=== PATIENT | male | born 1970 | race Hispanic/Latino ===

== ENCOUNTER 2019-12-02 19:17 | Inpatient (IN) | payer SELFPAY ==
[~2019-12-02] VITALS: Ht 180.3 cm; Wt 104.8 kg
[2019-12-02 19:57] LABS: EOSINOPHILS % (AUTO) 6.3 % (0.0-8.0); HEMATOCRIT 53.5 % (42-54); LYMPHOCYTES % (AUTO) 29.9 % (21.0-51.0); MEAN CORPUSCULAR HEMOGLOBIN 30.2 pg (27.0-33.0); MEAN CORPUSCULAR HGB CONC 33.8 g/dL (32.0-36.0); MEAN CORPUSCULAR VOLUME 89.3 fL (79-99); MONOCYTES % (AUTO) 10.9 % (3.0-13.0); NEUTROPHILS % (AUTO) 51.6 % (40.0-77.0); PLATELET COUNT (AUTO) 218 K/uL (130-400); RED BLOOD CELL COUNT(AUTO) 5.99 MIL/uL (4.50-6.20); RED CELL DISTRIBUTION WIDTH 11.7 % (11.0-15.5); WHITE BLOOD COUNT (AUTO) 5.9 K/uL (4.8-10.8)
[2019-12-02 20:11] LABS: INR 0.94 (0.85-1.15); PARTIAL THROMBOPLASTIN TIME 25.4 SEC (26.3-35.5); PROTHROMBIN TIME 10.2 SEC (9.6-11.6)
[2019-12-02 20:12] LABS: CREATININE 1.1 mg/dL (0.5-1.5); POTASSIUM 4.3 mmol/L (3.5-5.1)
[2019-12-02 20:16] LABS: ALBUMIN 3.8 g/dL (3.5-5.0); BILIRUBIN,TOTAL 0.5 mg/dL (0.2-1.0); TOTAL PROTEIN, SERUM 8.4 g/dL (6.0-8.3)
[2019-12-02 21:15] LABS: APPEARANCE,URINE Cloudy (CLEAR); BILIRUBIN,URINE Small (NEGATIVE); COLOR,URINE Dark Yellow (YELLOW); GLUCOSE, URINE (UA) Negative (NEGATIVE); KETONES,URINE Negative (NEGATIVE); LEUKOCYTE ESTERASE ,URINE Negative (NEGATIVE); NITRATE,URINE Negative (NEGATIVE); OCCULT BLOOD,URINE Negative (NEGATIVE); PROTEIN,URINE Negative (NEGATIVE)
[2019-12-02 21:21] LABS: AMPHET/METH SCREEN,URINE NEGATIVE (NEGATIVE); BARBITURATE SCREEN, URINE NEGATIVE (NEGATIVE); BENZODIAZEPINES SCREEN,URINE NEGATIVE (NEGATIVE); CANNABINOID SCREEN,URINE POSITIVE (NEGATIVE); COCAINE SCREEN,URINE NEGATIVE (NEGATIVE); OPIATE SCREEN,URINE NEGATIVE (NEGATIVE); PHENCYCLIDINE SCREEN,URINE NEGATIVE (NEGATIVE)
[2019-12-02 21:59] LABS: BACTERIA,URINE Few /HPF (None Seen); RBC,URINE 0-1 /HPF (0-1); SQUAMOUS EPITHELIAL CELL,UR Moderate /HPF (0-2)
[2019-12-02 22:00] LABS: MUCUS,URINE Few LPF (None Seen)
[2019-12-02] MEDS ORDERED: FAMOTIDINE/PF 20 MG/2 ML VIAL IV ONE (23:28)
[2019-12-02] MEDS ORDERED: LISI-613 PO (23:50)
[2019-12-02] MEDS ORDERED: HYDR12.54 PO (23:50)
[2019-12-03] VITALS (7 sets, daily range): BP systolic 124–153; BP diastolic 75–109
--- NOTE | 2019-12-03 02:04 | NUR ---
received report from er nurse, assumed care, head to toe assessment done, neurocheck done, vs checked, place tele running normal sinus rhythm, reconciled medication , stroke scale done nih 2, safety maintained, bed in lowest position, bedrails upx2, callbell in reached, pt on npo , for mri today.
[2019-12-03 04:43] LABS: HEMATOCRIT 51.2 % (42-54); MEAN CORPUSCULAR HEMOGLOBIN 30.3 pg (27.0-33.0); MEAN CORPUSCULAR HGB CONC 33.6 g/dL (32.0-36.0); MEAN CORPUSCULAR VOLUME 90.1 fL (79-99); RED BLOOD CELL COUNT(AUTO) 5.68 MIL/uL (4.50-6.20); RED CELL DISTRIBUTION WIDTH 11.8 % (11.0-15.5); WHITE BLOOD COUNT (AUTO) 6.1 K/uL (4.8-10.8)
[2019-12-03 05:01] LABS: CREATININE 1.3 mg/dL (0.5-1.5)
[2019-12-03 05:09] LABS: HEMOGLOBIN A1C 5.6 % (4.0-6.0)
[2019-12-03] MEDS ORDERED: ASPIRIN 81 MG EC TAB PO SCH (09:00)
[2019-12-03] MEDS ORDERED: FAMOTIDINE/PF 20 MG/2 ML VIAL IV SCH (09:00)
--- NOTE | 2019-12-03 10:00 | NUR ---
DYSPHAGIA EVAL COMPLETED. -S/S OF ASPIRATION. RECOMMEND REGULAR TEXTURE, THIN LIQUIDS; PILLS WHOLE WITH LIQUIDS. Addendum: 12/03/19 at 1240 by DIEUDONNE SANFORD, [facility] Amended: Links added.
--- NOTE | 2019-12-03 10:30 | NUR ---
COGNITIVE-LINGUISTIC EVALUATION COMPLETED. Pt PRESENTS WITH MODERATE-SEVERE DYSARTHRIA. EVALUATION: Pt AAOX3. Pt REQUESTS WANTS AND NEEDS INDEPENDENTLY. Pt INTELLIGIBLE AT 50% ACCURACY DURING RUNNING SPEECH TO THE UNFAMILIAR LISTENER. Pt PRESENTS WITH MODERATE-SEVERE DYSARTHRIA. Pt COMMUNICATING AT CONVERSATIONAL LEVEL (NEGATIVELY IMPACTED BY DYSARTHRIA). Pt COMPLETED COGNITIVE-LINGUISTIC EVALUATION TARGETING: ORIENTATION, ATTENTION/CONCENTRATION, MEMORY (IMMEDIATE, SHORT-TERM AND LONG-TERM), PROBLEM SOLVING, LOGIC/REASONING/INFERENCE, THOUGHT ORGANIZATION, FUNCTIONAL MATH AND TELLING TIME. Pt ABLE TO COMPLETE TASKS WITH CORRECT ANSWERS. SKILLED SPEECH THERAPY IS RECOMMENDED TARGETING MOTOR SPEECH. RECOMMENDATIONS: 1. SKILLED SPEECH THERAPY 1-5XWK TOLERATED BY Pt FOR 4WKS. LTG#1: Pt WILL BE INTELLIGIBLE AT 80% ACCURACY IN ALL SETTINGS TO PARTICIPATE IN ADLs INDEPENDENTLY. STG1: Pt WILL COMPLETE ORAL MOTOR EXERCISES WITH 80% ACCURACY. STG2: Pt WILL COMPLETED AMRs/SMRs WITH 80% ACCURACY. STG3: Pt WILL COMPLETE SPEECH CLARITY TECHNIQUES AT PHRASE LEVEL WITH 80% ACCURACY. STG4: Pt WILL COMPLETE SPEECH CLARITY TECHNIQUES AT SENTENCE LEVEL WITH 80% ACCURACY. STG5: SKILLED EDUCATION Pt/STAFF. MOTOR SPEECH G-CODES: [id number] Addendum: 12/03/19 at 1314 by DIEUDONNE SANFORD [facility] Amended: Links added.
[2019-12-03] MEDS ORDERED: GADODIAMIDE 10 MMOL/20 ML VIAL IV ONE (11:23)
[2019-12-03] MEDS ORDERED: LIDOCAINE HCL-MPF 1% 2ML VIAL IV PRN (15:15)
[2019-12-03] MEDS ORDERED: ZOLPIDEM TARTRATE 5 MG TAB PO PRN (15:15)
[2019-12-03] MEDS ORDERED: GUAIFENESIN-DM 200/20 MG 10 ML PO PRN (15:15)
[2019-12-03] MEDS ORDERED: DiphenhydrAMINE HCL 50 MG/ML VIAL IV PRN (15:15)
[2019-12-03] MEDS ORDERED: ONDANSETRON HCL 4 MG/2 ML VIAL IV PRN (15:15)
[2019-12-03] MEDS ORDERED: MAG HYDROX/AL HYDROX/SIMETH ES 30 ML SUSP UDCUP PO PRN (15:15)
[2019-12-03] MEDS ORDERED: HYDRALAZINE HCL 20 MG/ML VIAL IV PRN (15:15)
[2019-12-03] MEDS ORDERED: ACETAMINOPHEN 325 MG TAB PO PRN ×2 (15:15)
[2019-12-03] MEDS ORDERED: POTASSIUM CHLORIDE 10% ELIXIR 20 MEQ/15 ML UDCUP PO PRN (15:15)
[2019-12-03] MEDS ORDERED: LACTULOSE 20 GM/30 ML UDCUP PO PRN (15:15)
[2019-12-03] MEDS ORDERED: MORPHINE SULFATE 4 MG/1ML SYG IV PRN (15:15)
[2019-12-03] MEDS ORDERED: DIPHENHYDRAMINE HCL 25 MG CAPSULE PO PRN (15:15)
[2019-12-03] MEDS ORDERED: POTASSIUM CHLORIDE 20MEQ/100ML 100 ML IV PRN (15:15)
[2019-12-03] MEDS ORDERED: MAGNESIUM 2GM PREMIX 50ML 50 ML IV PRN (15:15)
[2019-12-03] MEDS ORDERED: NITROGLYCERIN 0.4 MG SL TAB SL PRN (15:15)
[2019-12-03] MEDS ORDERED: POTASSIUM CHLORIDE 20 MEQ ERTAB PO PRN (15:15)
--- NOTE | 2019-12-03 17:34 | NUR ---
SPOKE TO SISTER AT BEDSIDE. PATIENT LIVES WITH HIS OLDER PARENTS- NO DME, INDP, DRIVES, HELPS HIS FAMILY- HX OF SIMILAR EPISODE A FEW MONTHS AGO WITHOUT DEFINITE DIAGNOSIS. SPOKE TO SISTER, STATES PATIENT VERY UPSET, CANNOT SPEAK PROPERLY, ADVISED SISTER THAT FAMILY AND PATIENT WILL GET A DEFINITE DX IN THE MORNING WITH A PLAN OF CARE. STROKE CONFIRMED BY IMAGING, POSS EMBOLIC WILL FOLLOW UP. ADVISED SISTER WHIPPED TOPPING FINISHER CAN HELP WITH COUPONS, MEDS, ETC ON DISCHARGE. CM TO FOLLLUPILLO Addendum: 12/03/19 at 1745 by YEISON NAVA RN CM Amended: Links added.
[2019-12-03] MEDS: FAMOTIDINE 20MG TAB 20 MG TAB PO SCH (20:35)
--- NOTE | 2019-12-04 01:35 | NUR ---
received report from am nurse, [facility] care, shift assessment done, pt passed swallow test, new diet ordered, 24 cc done, timed medication given see emar, safety maintained, pt had a bm, will continue to monitor.
[2019-12-04 04:18] VITALS: BP 159/92
[2019-12-04 04:35] LABS: EOSINOPHILS % (AUTO) 5.9 % (0.0-8.0); HEMATOCRIT 51.2 % (42-54); LYMPHOCYTES % (AUTO) 23.6 % (21.0-51.0); MEAN CORPUSCULAR HGB CONC 33.2 g/dL (32.0-36.0); MEAN CORPUSCULAR VOLUME 90.3 fL (79-99); NEUTROPHILS % (AUTO) 58.2 % (40.0-77.0); PLATELET COUNT (AUTO) 194 K/uL (130-400); RED BLOOD CELL COUNT(AUTO) 5.67 MIL/uL (4.50-6.20); RED CELL DISTRIBUTION WIDTH 11.7 % (11.0-15.5); WHITE BLOOD COUNT (AUTO) 6.1 K/uL (4.8-10.8)
[2019-12-04 05:05] LABS: ALBUMIN 3.6 g/dL (3.5-5.0); BILIRUBIN,TOTAL 0.6 mg/dL (0.2-1.0); CREATININE 1.4 mg/dL (0.5-1.5); POTASSIUM 4.7 mmol/L (3.5-5.1)
--- NOTE | 2019-12-04 05:54 | NUR ---
pt , fernando hartman [phone].
[2019-12-04 07:00] VITALS: BP 148/94
[2019-12-04 11:00] VITALS: BP 144/89
--- NOTE | 2019-12-04 14:13 | NUR ---
SPEECH THERAPY COMPLETED. S: Pt SEATED IN POLLO CHAIR AT THE TIME OF THE SESSION. Pt COOPERATIVE WITH ALL TASKS. O: Pt CURRENTLY TARGETING SPEECH GOALS TO IMPROVE DYSARTHRIA. RESULTS ARE FOLLOWS: STG1: Pt WILL COMPLETE ORAL MOTOR EXERCISES WITH 80% ACCURACY: 70% ACCURACY GIVEN MAX CUES STG2: Pt WILL COMPLETED AMRs/SMRs WITH 80% ACCURACY: 70% ACCURACY GIVEN MAX CUES STG3: Pt WILL COMPLETE SPEECH CLARITY TECHNIQUES AT PHRASE LEVEL WITH 80% ACCURACY: 50% ACCURACY GIVEN MAX CUES STG4: Pt WILL COMPLETE SPEECH CLARITY TECHNIQUES AT SENTENCE LEVEL WITH 80% ACCURACY: NOT TARGETED STG5: SKILLED EDUCATION Pt/STAFF: COMPLETED A: Pt WITH IMPROVED USE OF OVER-ARTICULATION TECHNIQUES WITH MAXIMUM CUES. P: RECOMMEND CONTINUED SKILLED SPEECH THERAPY 3-5XWK FOR 4 WEEKS. INSURANCE FOLLOW UP REP PROVIDED Pt WITH HANDOUT OF HOME PROGRAM AT THIS TIME. HE VERBALIZED UNDERSTANDING AND COMPLIANCE. ALL QUESTIONS ANSWERED AT THIS TIME. INSURANCE FOLLOW UP REP COORDINATED WITH NURSE BLANK. Addendum: 12/04/19 at 1418 by JOSE DE JESUS BLACKWELL Amended: Links added.
[2019-12-04 15:00] VITALS: BP 133/89
[2019-12-04 20:54] VITALS: BP 136/76
[2019-12-04] MEDS: FAMOTIDINE 20MG TAB 20 MG TAB PO SCH (20:58)
[2019-12-05 00:50] VITALS: BP 151/86
[2019-12-05 06:10] LABS: EOSINOPHILS % (AUTO) 7.5 % (0.0-8.0); HEMATOCRIT 50.8 % (42-54); LYMPHOCYTES % (AUTO) 28.9 % (21.0-51.0); MEAN CORPUSCULAR HEMOGLOBIN 29.6 pg (27.0-33.0); MEAN CORPUSCULAR HGB CONC 32.9 g/dL (32.0-36.0); MEAN CORPUSCULAR VOLUME 90.1 fL (79-99); MONOCYTES % (AUTO) 11.4 % (3.0-13.0); PLATELET COUNT (AUTO) 195 K/uL (130-400); RED BLOOD CELL COUNT(AUTO) 5.64 MIL/uL (4.50-6.20); RED CELL DISTRIBUTION WIDTH 11.6 % (11.0-15.5); WHITE BLOOD COUNT (AUTO) 5.1 K/uL (4.8-10.8)
[2019-12-05 06:34] VITALS: BP 139/91
[2019-12-05 06:46] LABS: ALBUMIN 3.4 g/dL (3.5-5.0); BILIRUBIN,TOTAL 0.8 mg/dL (0.2-1.0); CREATININE 1.1 mg/dL (0.5-1.5); POTASSIUM 4.1 mmol/L (3.5-5.1); TOTAL PROTEIN, SERUM 7.5 g/dL (6.0-8.3)
[2019-12-05 08:00] VITALS: BP 147/93
[2019-12-05 11:34] VITALS: BP 137/90
--- NOTE | 2019-12-05 12:08 | NUR ---
EXPECTING DC TO HOME WHEN CLEARED BY CARDIOLOGY. GWENDOLYN TODAY. HIV CTS SPECIALIST TO DISCUSS WITH FAMILY(SISTER DELORES( EXCERSIZES FOR IMPROVED SPEECH. CM T FOLLOW IF NEEDS ANY MED COUPONS. Addendum: 12/05/19 at 1250 by YEISON NAVA RN CM Amended: Links added.
[2019-12-05] MEDS ORDERED: FENTANYL CITRATE PF 50 MCG/1 ML 2ML VIAL ONE (13:46)
[2019-12-05] MEDS ORDERED: MIDAZOLAM HCL 1 MG/ML 2ML VIAL ONE (13:47)
--- NOTE | 2019-12-05 14:06 | NUR ---
SPEECH THERAPY COMPLETED. S: Pt SEATED IN BED AT THE TIME OF THE SESSION. Pt COOPERATIVE WITH ALL TASKS. O: Pt CURRENTLY TARGETING SPEECH GOALS TO IMPROVE DYSARTHRIA. RESULTS ARE FOLLOWS: STG1: Pt WILL COMPLETE ORAL MOTOR EXERCISES WITH 80% ACCURACY: 70% ACCURACY GIVEN MAX CUES STG2: Pt WILL COMPLETED AMRs/SMRs WITH 80% ACCURACY: 70% ACCURACY GIVEN MAX CUES STG3: Pt WILL COMPLETE SPEECH CLARITY TECHNIQUES AT PHRASE LEVEL WITH 80% ACCURACY: 60% ACCURACY GIVEN MAX CUES STG4: Pt WILL COMPLETE SPEECH CLARITY TECHNIQUES AT SENTENCE LEVEL WITH 80% ACCURACY: 60% ACCURACY GIVEN MAX CUES STG5: SKILLED EDUCATION Pt/STAFF: COMPLETED A: Pt WITH IMPROVED USE OF OVER-ARTICULATION TECHNIQUES WITH MAXIMUM CUES. P: RECOMMEND CONTINUED SKILLED SPEECH THERAPY 3-5XWK FOR 4 WEEKS. METALWORKING SPECIALIST PROVIDED Pt WITH HANDOUTS OF HOME PROGRAM AT THIS TIME (IN [facility] [place]-LEFT AT BEDSIDE). HE VERBALIZED UNDERSTANDING AND COMPLIANCE. ALL QUESTIONS ANSWERED AT THIS TIME. METALWORKING SPECIALIST COORDINATED WITH NURSE SERRATO. METALWORKING SPECIALIST CALLED SISTER DELORES AND PROVIDED HER WITH INSTRUCTIONS TO CONTINUE HOME PROGRAM WITH Pt WHEN DISCHARGED. METALWORKING SPECIALIST PROVIDED EXTENSION 1612 TO CALL INCASE OF QUESTIONS OR CLARIFICATION. Addendum: 12/05/19 at 1418 by DIEUDONNE SANFORD [facility] Amended: Links added.
--- NOTE | 2019-12-05 15:00 | NUR ---
GWENDOLYN WITH BUBBLE STUDY PROCEDURE PERFORMED BY DR Sarbjit ROYAL AND TOLERATED PROCEDURE. END OF PROCEDURE AT 1430. PATIENT RECOVERED IN PROCEDURE ROOM. REPORT GIVEN TO KELSEY SERRATO AND PATIENT TRANSPORTED TO [facility] VIA BED AT [facility]. AWAKE AND RESPONDS TO STIMULI WITH NO C/O PAIN.
[2019-12-05 16:00] VITALS: BP 139/82
[2019-12-05 19:59] VITALS: BP 155/86
[2019-12-05] MEDS: FAMOTIDINE 20MG TAB 20 MG TAB PO SCH (20:23)
[2019-12-06 00:41] VITALS: BP 135/91
[2019-12-06 03:05] VITALS: BP 137/85
[2019-12-06 08:00] VITALS: BP 134/87
[2019-12-06] MEDS ORDERED: APIXABAN 5 MG TABLET PO SCH (09:00)
[2019-12-06 11:43] VITALS: BP 141/88
--- NOTE | 2019-12-06 12:00 | NUR ---
COUPON FOR ERICA GIVEN PATIENT 'READY FOR DC '= SPEAKING MUCH CLEARLY THAN LAST CM ASSESSMENT. PLAN FOR SISTER TO HELP WITH SPEECH EXERCISES AT HOME AFTER DISCHARGE
--- NOTE | 2019-12-06 12:16 | NUR ---
SPEECH THERAPY COMPLETED. S: Pt SEATED IN BED AT THE TIME OF THE SESSION. Pt COOPERATIVE WITH ALL TASKS. O: Pt CURRENTLY TARGETING SPEECH GOALS TO IMPROVE DYSARTHRIA. RESULTS ARE FOLLOWS: STG1: Pt WILL COMPLETE ORAL MOTOR EXERCISES WITH 80% ACCURACY: 70% ACCURACY GIVEN MAX CUES STG2: Pt WILL COMPLETED AMRs/SMRs WITH 80% ACCURACY: 70% ACCURACY GIVEN MAX CUES STG3: Pt WILL COMPLETE SPEECH CLARITY TECHNIQUES AT PHRASE LEVEL WITH 80% ACCURACY: 70% ACCURACY GIVEN MAX CUES STG4: Pt WILL COMPLETE SPEECH CLARITY TECHNIQUES AT SENTENCE LEVEL WITH 80% ACCURACY: 60% ACCURACY GIVEN MAX CUES STG5: SKILLED EDUCATION Pt/STAFF: COMPLETED A: Pt WITH IMPROVED USE OF OVER-ARTICULATION TECHNIQUES WITH MAXIMUM CUES. P: RECOMMEND CONTINUED SKILLED SPEECH THERAPY 3-5XWK FOR 4 WEEKS. CTE TEACHER PROVIDED Pt ADDITIONAL HANDOUTS OF HOME PROGRAM AT THIS TIME (IN [facility] [place]-LEFT AT BEDSIDE). HE VERBALIZED UNDERSTANDING AND COMPLIANCE. ALL QUESTIONS ANSWERED AT THIS TIME. CTE TEACHER COORDINATED WITH NURSE JASMINE. Addendum: 12/06/19 at 1219 by JOSE DE JESUS BLACKWELL ST Amended: Links added.
[2019-12-06] MEDS ORDERED: APIX5TAB PO (13:49)
--- NOTE | 2019-12-06 18:24 | NUR ---
PATIENT DISCHARGED PATIENT DISCHARGED, IV DISCONTINUED, CATHLON INTACT, BLEEDING CONTROLLED, PATIENT TOLERATED WITHOUT INCIDENT. DISCUSSED FOLLOW UP APPOINTMENTS WITH PATIENT AND THE IMPORTANCE OF NEW MEDICATION. ADVISED PATIENT HE NEEDS TO GO TO [facility] TOMORROW TO AUDIT CONSULTANT RX INFORMATION. PATIENT STATED HE UNDERSTOOD. CALLED DAUGHTER VAZQUEZ FOR TRANSPORTATION.
== END 2019-12-06 19:15 | disposition home or self-care (01) | DRG 66 ==
LOC: EDH 19:17 → EDHIP 19:18 → OBSVTOIN 19:18 → 4DH 23:41
PROVIDERS: ADMIT Internal Medicine Pulmonary Disease; ATTEND Internal Medicine Pulmonary Disease
PROC: B24BZZ4 Ultrasonography of Heart with Aorta, Transesophageal (ICD-10-PCS; principal; 2019-12-04)
DX: I63.81 Other cerebral infarction due to occlusion or stenosis of small artery (principal); R47.01 Aphasia; N18.2 Chronic kidney disease, stage 2 (mild); I12.9 Hypertensive chronic kidney disease with stage 1 through stage 4 chronic kidney disease, or unspecified chronic kidney disease; R47.1 Dysarthria and anarthria; E66.01 Morbid (severe) obesity due to excess calories; Z68.32 Body mass index [BMI] 32.0-32.9, adult; F12.90 Cannabis use, unspecified, uncomplicated; Z79.899 Other long term (current) drug therapy; F19.10 Other psychoactive substance abuse, uncomplicated
CPT/HCPCS: 36415; 70450; 70544; 70553; 71045; 80048; 80053; 80061; 80305; 81001; 82550; 83036; 83721; 83735; 84484; 85025; 85027; 85610; 85730; 92507; 92522; 92610; 93005; 93306; 93313; 93880; 97039; 99152; 99153; A9579; G0378; J2250; J3010; J3490